=== PATIENT | female | born 1995 | race African-American/Black ===

== ENCOUNTER 2019-02-04 15:41 | Emergency (ER) | payer OTHER ==
[2019-02-04] MEDS ORDERED: SODIUM CHLORIDE 0.9% 500 ML INFUS.BAG IV ONE (15:49)
[2019-02-04 15:57] VITALS: BMI 34.7
[2019-02-04 16:22] LABS: HEMATOCRIT 36.1 % (32.4-45.2); LYMPH % 34.6 % (8-40); MCH 28.4 pg (25.7-33.7); MCHC 33.3 g/dl (32.0-36.0); MEAN CELL VOLUME 85.4 fl (80-96); MEAN PLT VOLUME 8.8 fl (7.5-11.1); MONO % 5.8 % (3.8-10.2); NEUT % 57.6 % (42.8-82.8); PLATELET COUNT 291 K/MM3 (134-434); RBC 4.22 M/mm3 (3.60-5.2); RDW 13.8 % (11.6-15.6); WHITE BLOOD COUNT 6.3 K/mm3 (4.0-10.8)
[2019-02-04 16:40] LABS: ALBUMIN 3.6 g/dl (3.4-5.0); BILIRUBIN,TOTAL 0.3 mg/dl (0.2-1); CREATININE 0.9 mg/dl (0.55-1.3); POTASSIUM 3.9 mmol/L (3.5-5.1); TOT PROT 6.8 g/dl (6.4-8.2)
--- NOTE | 2019-02-04 17:01 | PDOC ---
Documentation entered by Anju Zamarripa SCRIBE, acting as scribe for Jacqui Fernando MD. Jacqui Fernando MD: This documentation has been prepared by the Dallin moore Daisy, SCRIBE, under my direction and personally reviewed by me in its entirety. I confirm that the documentation accurately reflects all work, treatment, procedures, and medical decision making performed by me. History of Present Illness - General Chief Complaint: Seizure Stated Complaint: SEIZURE History Source: Patient, Parent(s) (mother and aunt) Exam Limitations: Other - History of Present Illness Initial Comments: 02/04/19 15:48 The patient is a 23YOF with a PMH of cerebral palsy and pseudoseizures vs. seizures, anxiety and depression who was sent in to the ED by PCP, Dr. Armando, for evaluation of multiple episodes of seizures while at the office today. Patient had witnessed episodes of twisting of the neck and face with altered level of consciousness and general tonic clonic movements lasting >2 minutes. Aunt at bedside states the patient was also having tongue movements and foaming at the mouth that initially started last week and this is a new presentation of her seizure activity, with increased intensity frequency and presentation.. no associated tongue biting or incontinence. when family members noticed her seizure activity last week and yesterday, she had been in bed and mostly had shaking activity and twitching of her face and neck with increased drooling. They were preparing to send to patient to be admitted at [facility] to have an EEG at [facility] with Dr. Jeff, pediatric neurologist. Aunt at bedside reports that she had been seizure free x 6 months, currently managed on Trileptal. Aunt states that last week she had her 2nd shot Depo, which was initiated in December. Of note, aunt and mother noted patient has also been complaining of right sided numbness and hip pain for the past 3 days, of which she was recently dx'd with arthritis from outpatient Xrays. Allergies: raspberry Meds: oxcarbazepine 600mg BID, aripiprazole 5mg daily, fluoxetine HCl 40mg 2 pills daily, docusate sodium 100mg 2 pills daily, ferrous gluconate 324mg BID, dulcolax 2 pills BID, contraceptive shot no new medication changes except for initiation of control no sick contacts. no prodromal viral infections or recent illnesses 02/04/19 17:05 Past History - Past Medical History Allergies/Adverse Reactions: Allergies Allergy/AdvReac Type Severity Reaction Status Date / Time raspberry Allergy Verified 02/04/19 15:58 Home Medications: Ambulatory Orders Aripiprazole [Abilify -] 5 mg PO DAILY 02/04/19 Cholecalciferol (Vitamin D3) [Vitamin D3 -] 1,000 unit PO DAILY 02/04/19 Docusate Sodium 200 mg PO HS 02/04/19 Fluoxetine HCl [Prozac] 40 mg PO DAILY 02/04/19 Medroxyprogesterone Acetate [Depo-Provera] 150 mg IM ASDIR 02/04/19 Oxcarbazepine [Oxtellar Xr] 600 mg PO BID 02/04/19 Sennosides [Senna] 8.6 mg PO HS 02/04/19 Review of Systems - Review of Systems Able to Perform ROS?: Yes Comments:: 02/04/19 16:25 Constitutional: no fevers or chills. HEENT: no headache or dizziness. No congestion. No visual/hearing disturbances. CVS: no cp or syncope. Resp: no sob. No cough. Gastrointestinal: no abdominal pain, nausea or vomiting. Genitourinary: no urinary sx, hematuria. MUSCULOSKELETAL: No joint pain and swelling. No neck or back pain. SKIN: no redness or skin changes, no discharge, no rash. No wounds. Hematologic: no easy bruising/bleeding. NEUROLOGIC: No headache, dizziness, LOC or altered mental status. No weakness or tingling. (+) Right sided numbness. (+) Seizures. Psych: +anxiety or depression Allergic/Immunologic: raspberry allergies All other systems reviewed and negative, or as documented in HPI. 02/04/19 17:10 *Physical Exam - Physical Exam Comments: 02/04/19 16:26 General: awake and alert, NAD. HEENT: NCAT, PERRL, EOMI, clear conjunctiva, anicteric, moist mucus membranes, clear oropharynx, no oral lesions.. Neck: neck supple, FROM Resp: CTAB, normal and even respirations, no respiratory distress CVS: RRR, no murmurs, 2+ peripheral pulses throughout, no peripheral edema Abdomen: soft, NTND, no rebound or guarding. No CVAT. Back: nontender, normal inspection and ROM MSK: no edema, SIMPSON x4, ROM intact. No clubbing or cyanosis. normal bulk and tone. Neuro: alert, oriented to person and surroundings. (+) baseline dysarthic consistent with cerebral palsy. follows commands. verbal. no focal neurologic deficits, no seizure or confusion Skin: warm and well perfused, cap refill <2 sec, normal color 02/04/19 17:10 ED Treatment Course - LABORATORY CBC & Chemistry Diagram: 02/04/19 16:05 02/04/19 16:05 Medical Decision Making - Medical Decision Making 02/04/19 17:28 See HPI for details. Prior notes reviewed, including admissions, discharges and consultations. Vital signs reviewed, wnl. laboratory results and imaging reviewed, basic labs and lytes wnl UA_+leuk esterase and WBCs>10-20, f/u urine culture will give one dose of abx for possible UTI, in patient with baseline CP and cognitive limitations, possible trigger for sz and will treat accordingly. EKG normal sinus rhythm at 86 bpm, no interval abnormalities, narrow QRS, ST and T wave segments and morphology normal. CT head neg for acute [facility] pathology, mass or bleeding. ED course: No acute events here, no return of sz activity Given IVF here, no benzos or loading of meds, as she will be fully evaluated by primary peds neurologist at tertiary care. More back to baseline, alert and acting per herself with family CT head unremarkable, indicated for new/changed seizures. No infectious sx, doubt infection such as meningitis or systemic toxicity. Family members consented for transfer to higher level of care. Spoke with Dr Armando PCP as well as primary neurologist Dr Jeff at [facility]. Discussed care, work up here and transfer to be arranged to [facility] inpatient service for seizure workup, EEG and continued management. Accepted for transfer and will arrange. 02/04/19 17:28 02/04/19 17:32 *DC/Admit/Observation/Transfer Diagnosis at time of Disposition: Seizure, UTI (urinary tract infection) - Discharge Dispostion Disposition: TRANSFER ACUTE CARE/OTHER HOSP Condition at time of disposition: Stable Decision to Admit order: Yes - Referrals - Patient Instructions - Post Discharge Activity - Transfer to Acute Care Facility Accepting Physician:: Dr Funmilayo Jeff Transfer comment: 02/04/19 17:30 [facility] IP bed
[2019-02-04 17:14] LABS: EPITHELIAL CELLS FEW /hpf
[2019-02-04] MEDS ORDERED: CEFTRIAXONE 1,000 MG in DEXTROSE 5%-WATER - 50 ML IVPB ONE (17:30)
[2019-02-04] MEDS ORDERED: cefTRIAXone SODIUM 1 GM VIAL ONE (17:31)
[2019-02-04 18:04] VITALS: BP 109/61; PULSE 77
[2019-02-04 18:07] VITALS: TEMP 98.4
--- NOTE | 2019-02-05 13:23 | EKG ---
Test Reason : Blood Pressure : / mmHG Vent. Rate : 086 BPM Atrial Rate : 086 BPM P-R Int : 138 ms QRS Dur : 068 ms QT Int : 374 ms P-R-T Axes : 054 069 042 degrees QTc Int : 447 ms NORMAL SINUS RHYTHM POSSIBLE LEFT ATRIAL ENLARGEMENT NO PREVIOUS ECGS AVAILABLE Confirmed by HUNG TURPIN MD ([id number]) on 02/05/2019 1:23:50 PM Referred By: DR PEREZ Confirmed By:HUNG TURPIN MD
== END 2019-02-04 18:30 | disposition short-term general hospital (02) ==
LOC: FER 15:41
PROC: 3E03329 Introduction of Other Anti-infective into Peripheral Vein, Percutaneous Approach (ICD-10-PCS; principal; 2019-02-04)
PROC: 3E0337Z Introduction of Electrolytic and Water Balance Substance into Peripheral Vein, Percutaneous Approach (ICD-10-PCS; 2019-02-04)
DX: R56.9 Unspecified convulsions (principal); N39.0 Urinary tract infection, site not specified; G80.9 Cerebral palsy, unspecified; F41.9 Anxiety disorder, unspecified
CPT/HCPCS: 36415; 70450-TC; 80053; 81003; 81015; 82962; 84703; 85025; 87086; 93005; 99285-25